=== PATIENT | male | born 1960 | race Caucasian/White ===

== ENCOUNTER 2023-08-25 18:45 | Emergency (ER) | payer OTHER ==
[~2023-08-25 18:45] MED LIST: Iopamidol 300 61% 100 ML VIAL FS ONE
[2023-08-25 20:07] LABS: #Basophils 0.04 10x3/uL (0.0-0.2); #Eosinphils 0.05 10x3/uL (0.0-0.5); #Monocytes 1.03 10x3/uL (0.0-1.1); #Neutrophils 5.66 10x3/uL (1.5-8.4); %Basophils 0.5 % (0.0-2.0); %Eosinophils 0.7 % (0.0-6.0); %Lymphocytes 8.1 % (18.0-47.0); %Monocytes 13.9 % (0.0-10.0); %Neutrophils 76.3 % (40.0-75.0); Hematocrit 47.8 % (38.8-50.0); Hemoglobin 16.3 g/dL (13.5-17.5); Mean Corpuscular HGB CONC 34.1 g/dL (32.0-36.0); Mean Corpuscular Hemoglobin 32.6 pg (27.0-33.0); Mean Corpuscular Volume 95.6 fL (81.2-95.1); Mean Platelet Volume 11.1 fL (7.4-10.4); Platelet Count 207 10x3/uL (150-450); RBC Distribution Width 12.9 % (11.5-14.5); White Blood Cell (WBC) Count 7.4 10x3/uL (3.5-10.5)
[2023-08-25 20:46] LABS: Troponin I Less than 0.010 ng/mL (< 0.028)
[2023-08-25 21:02] LABS: ALT (SGPT) 150 U/L (8-55); AST (SGOT) 80 U/L (5-34); Albumin 3.4 g/dL (3.4-4.8); Alkaline Phosphatase 100 U/L (40-110); Anion Gap 15 mmol/L (10-20); BUN (Urea Nitrogen) 11 mg/dL (8.4-25.7); Bilirubin, Total 4.4 mg/dL (0.2-1.2); Calc. Creatinine Clearance 0 mL/min (70-130); Calcium 9.1 mg/dL (7.8-10.44); Carbon Dioxide 25 mmol/L (23-31); Chloride 101 mmol/L (98-107); Estimated GFR 72; Globulin 2.9 g/dL (2.4-3.5); Glucose 145 mg/dL (80-115); Lipase 23 U/L (8-78); Potassium 4.5 mmol/L (3.5-5.1); Protein, Total 6.3 g/dL (5.8-8.1); Sodium 136 mmol/L (136-145)
[2023-08-25 21:52] LABS: HBsAg Index 0.16 S/CO (0-0.99); Hep B Surf Ag NonReactive S/CO (NonReactive)
[2023-08-25] MEDS ORDERED: Piperacillin/Tazobactam 4.5 GM VIAL ONE (22:12)
[2023-08-25] MEDS ORDERED: Venlafaxine 75 MG TAB PO SCH (22:45)
[2023-08-26 15:16] LABS: HBCM Index 0.07 S/CO (0-0.79); Hep A IgM AB NONREACTIVE (NonReactive); Hep A IgM S/CO 0.16 S/CO (0-0.79); Hep C IgG Ab NONREACTIVE S/CO (NonReactive); Hep C Index 0.08 S/CO (0-0.79); Hepatitis B Core IgM Abs NONREACTIVE S/CO (NonReactive)
== END 2023-08-25 23:56 | disposition short-term general hospital (02) ==
LOC: CSHERS 18:45
DX: K83.09 Other cholangitis (principal); I10 Essential (primary) hypertension
CPT/HCPCS: 36415; 74177; 76705; 80053; 80074; 83605; 83690; 84484; 85025; 86140; 87040; 87077; 87149; 87186; 93005; J2543; Q9967